=== PATIENT | male | born 1970 | race African-American/Black ===

== ENCOUNTER 2019-06-03 01:02 | Emergency (ER) | payer BC ==
[~2019-06-03] VITALS: Ht 195.6 cm; Wt 125.0 kg
[2019-06-03 01:18] VITALS: BP 142/80
== END 2019-06-03 02:09 | disposition home or self-care (01) ==
LOC: ER 01:02
DX: L03.012 Cellulitis of left finger (principal); Z98.890 Other specified postprocedural states
CPT/HCPCS: 99283

== ENCOUNTER 2020-04-30 09:26 | Emergency (ER) | payer BC ==
[~2020-04-30] VITALS: Ht 195.6 cm; Wt 132.0 kg
[2020-04-30] MEDS ORDERED: MECLIZINE 25MG TABLET PO NR (10:00)
[2020-04-30] MEDS ORDERED: SODIUM CHLORIDE 0.9% 1,000 ML IV ONE (10:00)
[2020-04-30 10:19] LABS: BASOPHILS % 0.8 % (0.0-2.0); EOSINOPHILS % 3.7 % (0.0-5.0); HEMATOCRIT. 47.5 % (42.0-52.0); HEMOGLOBIN. 15.6 g/dL (14.0-18.0); LYMPHOCYTES % 39.8 % (20.0-50.0); MEAN CORPUSCULAR HEMOGLOBIN 26.8 pg (28.0-32.0); MEAN CORPUSCULAR VOLUME 81.5 fL (80.0-94.0); MEAN PLATELET VOLUME 8.7 fl (7.4-10.4); MONOCYTES % 26.4 % (2.0-8.0); NEUTROPHILS % 29.3 % (40.0-76.0); PLATELET 181 x1000/uL (130-400); RED BLOOD CELL COUNT 5.83 mill/uL (4.7-6.1); RED CELL DISTRIBUTION WIDTH 13.9 % (11.6-14.6)
[2020-04-30 10:27] LABS: CHLORIDE 105 mEq/L (98-107)
[2020-04-30 10:31] LABS: ETHANOL BLOOD < 10 mg/dL
[2020-04-30 11:55] LABS: *AMPHETAMINES SCREEN URINE NEGATIVE (NEGATIVE); *BENZODIAZEPINES SCREEN URINE NEGATIVE (NEGATIVE); *COCAINE SCREEN URINE NEGATIVE (NEGATIVE); METHADONE URINE SCREEN NEGATIVE (NEGATIVE); OPIATES URINE SCREEN NEGATIVE (NEGATIVE)
[2020-04-30 11:56] LABS: CANNABINOID URINE SCREEN NEGATIVE (NEGATIVE); PHENCYCLIDINE URINE SCREEN NEGATIVE (NEGATIVE)
[2020-04-30 11:57] LABS: *BARBITURATES SCREEN URINE NEGATIVE (NEGATIVE)
[2020-04-30] MEDS ORDERED: MECL-159 MT (14:52)
[2020-04-30 15:09] VITALS: BP 136/78
== END 2020-04-30 15:10 | disposition home or self-care (01) ==
LOC: ER 09:26
DX: R42 Dizziness and giddiness (principal); R03.0 Elevated blood-pressure reading, without diagnosis of hypertension
CPT/HCPCS: 36415; 70450; 71045; 80053; 80305; 80320; 83690; 83880; 84484; 85025; 93005; 99285; J8597; G0480

== ENCOUNTER 2020-10-08 17:41 | Emergency (ER) | payer BC ==
[~2020-10-08] VITALS: Ht 193 cm; Wt 91.0 kg
[~2020-10-08 17:41] MED LIST: MECL-159 MT
[2020-10-08 17:44] VITALS: BP 125/84
== END 2020-10-08 18:59 | disposition left against medical advice (07) ==
LOC: ER 17:41
DX: Z53.21 Procedure and treatment not carried out due to patient leaving prior to being seen by health care provider (principal)